=== PATIENT | female | born 1995 | race African-American/Black ===

== ENCOUNTER 2019-09-26 12:54 | Emergency (ER) | payer BC, SELFPAY ==
[2019-09-26] VITALS (10 sets, daily range): BP systolic 116–136; BP diastolic 69–85; PULSE 67–76; RESP 16; TEMP 36.2; O2SAT 100
--- NOTE | ~2019-09-26 | US_ITS ---
EXAMINATION: US OB <=14 wk fetus w TV DATE: 09/26/2019 14:31 INDICATION: Cramping and bleeding during first trimester TECHNIQUE: Real-time pelvic transabdominal and transvaginal ultrasound was performed. COMPARISON: None. FINDINGS: The uterus measures 9.0 x 5.4 x 7.5 cm. There is an intrauterine gestational sac. A yolk s ac is identified. heart motion is identified measuring 116 beats per minute (bpm) by M-mode Dop pler. The crown rump length measures 8 mm , which correlates with an estimated gestational age of 7 weeks and 2 day(s) (+/-) 4 day(s). The right ovary measures 2.9 x 2.2 x 2.5 cm. The left ovary measures 3.0 x 2.7 x 2.0 cm. There is no free fluid in the pelvis. IMPRESSION: 1. Live intrauterine with an estimated gestational age of 7 weeks and 2 day(s) (+/-) 4 day( s) and an estimated delivery date of 05/12/2020. Reviewed, dictated and finalized at location A. IMPRESSION: 1. Live intrauterine with an estimated gestational age of 7 weeks and 2 day(s) (+/-) 4 day(s) and an estimated delivery date of 05/12/2020.
[2019-09-26 13:43] LABS: Basophils Percent Auto 0.5 % (0.2-1.2); Eosinophils Absolute Auto 0.1 K/mm3 (0-0.3); Eosinophils Percent Auto 0.9 % (0-4.4); Hematocrit 38.4 % (37.0-47.0); Hemoglobin 12.7 g/dL (12.0-15.0); Immature Granulocyte Absolute 0.01 K/mm3 (0.00-0.031); Immature Granulocyte Percent A 0.2 % (0-0.5); Mean Corpuscular HGB Conc 33.1 g/dl (32-36); Mean Corpuscular Hemoglobin 28.6 pg (26-34); Mean Corpuscular Volume 86.5 fl (80-100); Monocytes Absolute Auto 0.5 K/mm3 (0.1-0.6); Monocytes Percent Auto 8.8 % (2.6-8.5); Neutrophils Absolute Auto 3.4 K/mm3 (1.3-6.7); Neutrophils Percent Auto 59.6 % (45.5-73.1); Platelet Count Result 197 k/mm3 (150-375); Red Blood Count 4.44 M/mm3 (4.2-5.4); Red Cell Distribution Width 12.1 % (11.5-14.5); White Blood Count 5.7 K/mm3 (4.5-10.0)
--- NOTE | 2019-09-26 14:14 | ED.FEMALEGU ---
HPI - Female Genitourinary General Chief complaint: Vaginal Bleeding Stated complaint: preg, vag bleed, cramping Time Seen by Provider: 09/26/19 13:25 Source: patient Mode of arrival: ambulatory Limitations: no limitations History of Present Illness HPI Narrative: This is a 24 year old that presents to the ER for vaginal bleeding since this morning. Reports she is about 6 weeks by LMP. Reports she has been having some spotting over the last couple weeks. Reports some intermittent cramping as well. Reports today she started having some worsening bleeding which prompted her to be seen. Also reports some abnormal vaginal discharge and history of BV. Denies fever, vomiting, diarrhea, or dysuria. Related Data Allergies Allergy/AdvReac Type Severity Reaction Status Date / Time No Known Allergies Allergy Verified 09/26/19 13:02 Review of Systems Review of Systems: Narrative: CONSTITUTIONAL: Denies fever GASTROINTESTINAL: Reports abdominal/pelvic pain. Denies nausea, vomiting, or diarrhea. GENITOURINARY: Denies dysuria or hematuria. All systems reviewed & are unremarkable except as noted in HPI and below PMFSH Social History Social History (Updated 09/26/19 @ 16:38 by Tawny Brown PA-C) Smoking status: Never smoker Substance use: never Gender identity (if verbalized by the patient): Female Exam Narrative: Exam Narrative: GENERAL: Well-appearing, well-nourished, and in no acute distress. HEAD: Normocephalic, atraumatic. EYES: EOMI. CHEST: Clear to auscultation. No respiratory distress. No wheezes rales or rhonchi HEART: Regular rate and rhythm. No murmur heard. Normal peripheral pulses. ABDOMEN: Soft, nontender, nondistended, normal active bowel sounds. EXTREMITIES: Normal range of motion. No edema. SKIN: Warm, dry, no rash. NEURO: No focal deficits. Alert and oriented x3. PSYCH: Normal mood and affect PELVIC: Scant amount of blood in the vaginal vault. Cervix normal appearing and closed. Moderate amount of white discharge in the vaginal vault Course Vital Signs Vital signs: Vital Signs Temperature 97.2 F L 09/26/19 12:55 Pulse Rate 76 09/26/19 12:55 Respiratory Rate 16 09/26/19 12:55 Blood Pressure 124/74 09/26/19 12:55 Pulse Oximetry 100 09/26/19 12:55 Temperature 97.2 F L 09/26/19 12:55 Pulse Rate 69 09/26/19 13:42 Respiratory Rate 16 09/26/19 12:55 Blood Pressure 136/85 09/26/19 13:42 Pulse Oximetry 100 09/26/19 15:45 MDM - Female Genitourinary MDM Narrative Medical decision making narrative: Patient presents to the emergency department for pelvic cramping and vaginal bleeding, 6 weeks by her LMP. Patient is afebrile and nontoxic-appearing. No acute abnormalities of CBC, metabolic panel, or UA. Patient's quantitative beta-hCG is 81,778. Patient is O+. Obstetric ultrasound shows a live intrauterine with an estimated gestational age of 7 weeks and 2 days. Pelvic exam shows a scant amount of blood in the vaginal vault and a closed cervix. Patient does have a moderate amount of white discharge on exam. Patient reports history of BV. Trichomonas is negative. Chlamydia and gonorrhea were sent. Patient does have an appointment to follow-up with her OB on Monday. She was instructed to follow-up as planned. She will be treated for bacterial vaginosis as this can have poor outcomes in . Patient is to follow-up with her OB, she was given warnings to return to the ER Lab Data Attestation: I reviewed the patient's lab results. Result diagrams: 09/26/19 13:30 09/26/19 13:30 Labs: Lab Results 09/26/19 09/26/19 09/26/19 Range/Units 13:30 13:30 13:30 WBC 5.7 (4.5-10.0) K/mm3 RBC 4.44 (4.2-5.4) M/mm3 Hgb 12.7 (12.0-15.0) g/dL Hct 38.4 (37.0-47.0) % MCV 86.5 (80-100) fl MCH 28.6 (26-34) pg MCHC 33.1 (32-36) g/dl RDW 12.1 (11.5-14.5) % Plt Count 197 (150-375) k/mm3 MPV 12.0 H
[2019-09-26 14:17] LABS: Appearance Urine Clear (Clear); Bacteria Urine Trace /hpf; Bilirubin Urine Negative (Negative); Blood Urine Negative (Negative); Color Urine Yellow (Yellow); Glucose Urine UA Negative (Negative); Ketones Urine Negative (Negative); Leukocyte Esterase Ur Negative LEU/UL (Negative); Mucus Urine Rare /lpf; Nitrate Urine Negative (Negative); Protein Urine Negative (Negative); RBC Urine 0-2 /hpf (0-2); Specific Grav Ur 1.019 (1.001-1.035); Squamous Epithelial Cell Urine Rare /hpf (Few); Urobilinogen Urine Negative mg/dL (<2.0); WBC Urine 0-3 /hpf
[2019-09-26 14:18] LABS: Add Urine Microscopic? YES
[2019-09-26 14:31] LABS: Alanine Aminotransferase 14 U/L (4-35); Albumin Level 4.2 g/dL (3.5-5.1); Alkaline Phosphatase 73 U/L (38-126); Aspartate Amino Transferase 23 U/L (14-36); Bilirubin,Total 0.3 mg/dL (0.2-1.3); Blood Urea Nitrogen 8 mg/dL (7-17); Calcium 9.3 mg/dL (8.4-10.2); Carbon Dioxide 25 mmol/L (22-30); Chloride 102 mmol/L (98-107); Estimated CRCL calculation 134 ml/min; Estimated Glomerular Filt Rate > 60; Glucose 83 mg/dL (65-105); Potassium 3.7 mmol/L (3.4-5.0); Sodium 135 mmol/L (137-145)
--- NOTE | 2019-09-26 15:19 | PC.NURSE ---
Pt aware of POC. Pt has no questions
== END 2019-09-26 17:26 | disposition home or self-care (01) ==
PROVIDERS: Physician Assistant; Emergency Provider Family Medicine
DX: O20.0 Threatened abortion (principal); O23.591 Infection of other part of genital tract in pregnancy, first trimester; Z3A.01 Less than 8 weeks gestation of pregnancy
CPT/HCPCS: 36415; 76801; 76817; 80053; 81001; 81025; 84702; 85025; 85461; 87070; 87491; 87591; 87808; 99284

== ENCOUNTER 2019-11-03 17:58 | Emergency (ER) | payer BC, SELFPAY ==
[2019-11-03 18:00] VITALS: BP 131/96; PULSE 90; RESP 18; TEMP 36.2; O2SAT 99
[2019-11-03 18:43] LABS: Add Urine Microscopic? YES; Appearance Urine Clear (Clear); Bilirubin Urine Negative (Negative); Blood Urine Negative (Negative); Color Urine Yellow (Yellow); Glucose Urine UA Negative (Negative); Ketones Urine Trace mg/dL (Negative); Leukocyte Esterase Ur Negative LEU/UL (Negative); Mucus Urine Moderate /lpf; Nitrate Urine Negative (Negative); Protein Urine 1+ mg/dL (Negative); RBC Urine 0-2 /hpf (0-2); Specific Grav Ur 1.028 (1.001-1.035); Squamous Epithelial Cell Urine Occasional /hpf (Few); WBC Urine 0-3 /hpf
[2019-11-03 18:48] LABS: Basophils Percent Auto 0.3 % (0.2-1.2); Eosinophils Absolute Auto 0.2 K/mm3 (0-0.3); Eosinophils Percent Auto 2.1 % (0-4.4); Hematocrit 34.4 % (37.0-47.0); Hemoglobin 11.8 g/dL (12.0-15.0); Immature Granulocyte Absolute 0.02 K/mm3 (0.00-0.031); Immature Granulocyte Percent A 0.3 % (0-0.5); Mean Corpuscular HGB Conc 34.3 g/dl (32-36); Mean Corpuscular Hemoglobin 29.3 pg (26-34); Mean Corpuscular Volume 85.4 fl (80-100); Mean Platelet Volume 11.5 fl (7.4-10.4); Monocytes Absolute Auto 0.6 K/mm3 (0.1-0.6); Monocytes Percent Auto 8.4 % (2.6-8.5); Neutrophils Absolute Auto 4.4 K/mm3 (1.3-6.7); Neutrophils Percent Auto 61.9 % (45.5-73.1); Platelet Count Result 187 k/mm3 (150-375); Red Blood Count 4.03 M/mm3 (4.2-5.4); Red Cell Distribution Width 12.6 % (11.5-14.5)
[2019-11-03 19:29] VITALS: BP 123/69; PULSE 75; RESP 15; O2SAT 99
--- NOTE | 2019-11-03 19:31 | PC.NURSE ---
Assumed care of pt at this time. report from NARGIS Silver
--- NOTE | 2019-11-03 19:38 | ED.ABDPAIN ---
HPI - Abdominal Pain General Chief Complaint: Abdominal Pain <JARETH Bledsoe Last Filed: 11/03/19 21:57> Stated Complaint: abd cramping/ 12 weeks preg <JARETH Bledsoe Last Filed: 11/03/19 21:57> Time Seen by Provider: 11/03/19 18:59 <JARETH Bledsoe Last Filed: 11/03/19 21:57> Source: patient <JARETH Bledsoe Last Filed: 11/03/19 21:57> Mode of arrival: ambulatory <JARETH Bledsoe Last Filed: 11/03/19 21:57> Limitations: no limitations <JARETH Bledsoe Last Filed: 11/03/19 21:57> History of Present Illness HPI narrative: This is a 24 year old that presents to the ER for pelvic cramping since last night. Reports she is 12 weeks . She has not taken any medicine for pain. Does report history of chronic pelvic pain for which she has seen multiple OB/GYNs. Her OB for this is Dr. Walton. Denies fever, vaginal bleeding, nausea, vomiting, dysuria, or hematuria. <JARETH Bledsoe Last Filed: 11/03/19 21:57> Related Data Home Medications: Home Medications Medication Instructions Recorded Confirmed [id number] fum-folic [id number] pkg PO DAILY 11/03/19 [Daily ] <JARETH Bledsoe Last Filed: 11/03/19 21:57> Allergies/Adverse Reactions: Allergies Allergy/AdvReac Type Severity Reaction Status Date / Time No Known Allergies Allergy Verified 11/03/19 18:02 <JARETH Bledsoe Last Filed: 11/03/19 21:57> Review of Systems Review of Systems: Narrative: CONSTITUTIONAL: Denies fever GASTROINTESTINAL: Reports abdominal pain. Denies nausea, vomiting, or diarrhea. GENITOURINARY: Denies dysuria or hematuria. <JARETH Bledsoe Last Filed: 11/03/19 21:57> All systems reviewed & are unremarkable except as noted in HPI and below <Tawny Brown PA-C - Last Filed: 11/03/19 21:57> [facility] Social History Social History: Social History (Updated 09/26/19 @ 16:38 by Tawny Brown PA-C) Smoking status: Never smoker Substance use: never Gender identity (if verbalized by the patient): Female <Tawny Brown PA-C - Last Filed: 11/03/19 21:57> Exam Narrative: Exam Narrative: GENERAL: Well-appearing, well-nourished, and in no acute distress. HEAD: Normocephalic, atraumatic. EYES: EOMI. CHEST: Clear to auscultation. No respiratory distress. No wheezes rales or rhonchi HEART: Regular rate and rhythm. No murmur heard. Normal peripheral pulses. ABDOMEN: Soft, nontender, nondistended, normal active bowel sounds. EXTREMITIES: Normal range of motion. No edema. SKIN: Warm, dry, no rash. NEURO: No focal deficits. Alert and oriented x3. PSYCH: Normal mood and affect PELVIC: Normal external genitalia. Normal appearing cervix, no blood in the vaginal vault <Tawny Brown PA-C - Last Filed: 11/03/19 21:57> Course Consultations Consultation #1: Spoke with Dr. Walton about patient and work-up will follow-up in clinic. <Tawyn Brown PA-C - Last Filed: 11/03/19 21:57> Date: 11/03/19 <Tawny Brown PA-C - Last Filed: 11/03/19 21:57> Time: 21:53 <Tawny Brown PA-C - Last Filed: 11/03/19 21:57> Vital Signs Vital signs: Vital Signs Temperature 36.2 C L 11/03/19 18:00 Pulse Rate 90 11/03/19 18:00 Respiratory Rate 18 11/03/19 18:00 Blood Pressure 131/96 H 11/03/19 18:00 Pulse Oximetry 99 11/03/19 18:00 Temperature 36.2 C L 11/03/19 18:00 Pulse Rate 77 11/03/19 21:50 Respiratory Rate 15 11/03/19 21:50 Blood Pressure 122/80 11/03/19 21:50 Pulse Oximetry 97 11/03/19 21:50 <Tawny Brown PA-C - Last Filed: 11/03/19 21:57> Vital Signs Temperature 36.2 C L 11/03/19 18:00 Pulse Rate 90 11/03/19 18:00 Respiratory Rate 18 11/03/19 18:00 Blood Pressure 131/96 H 11/03/19 18:00 Pulse Oximetry 99 11/03/19 18:00 Temperature 36.2 C L 11/03/19 18:00 Pulse Rate 77
[2019-11-03 19:42] LABS: Alanine Aminotransferase 17 U/L (4-35); Albumin Level 3.7 g/dL (3.5-5.1); Alkaline Phosphatase 61 U/L (38-126); Aspartate Amino Transferase 21 U/L (14-36); Bilirubin,Total 0.1 mg/dL (0.2-1.3); Blood Urea Nitrogen 8 mg/dL (7-17); Calcium 9.1 mg/dL (8.4-10.2); Carbon Dioxide 21 mmol/L (22-30); Chloride 106 mmol/L (98-107); Estimated CRCL calculation 161 ml/min; Estimated Glomerular Filt Rate > 60; Glucose 104 mg/dL (65-105); Lipase 37 U/L (23-300); Potassium 3.4 mmol/L (3.4-5.0); Sodium 134 mmol/L (137-145)
[2019-11-03 21:50] VITALS: BP 122/80; PULSE 77; RESP 15; O2SAT 97
== END 2019-11-03 21:50 | disposition home or self-care (01) ==
PROVIDERS: Physician Assistant; Emergency Provider Emergency Medicine; PCP Obstetrics & Gynecology
DX: O26.891 Other specified pregnancy related conditions, first trimester (principal); R10.2 Pelvic and perineal pain; Z3A.12 12 weeks gestation of pregnancy
CPT/HCPCS: 36415; 80053; 81001; 83690; 84702; 85025; 96374; 99284; J0131

== ENCOUNTER 2020-02-11 16:39 | Observation (INO) | payer BC, SELFPAY ==
[2020-02-11 16:32] VITALS: BP 130/81; PULSE 72; RESP 16; TEMP 36.3; O2SAT 100
[2020-02-11 16:45] VITALS: BMI 34.2
[2020-02-11 17:01] VITALS: BP 125/81; PULSE 78
[2020-02-11 17:16] VITALS: BP 124/72; PULSE 74
[2020-02-11 17:30] VITALS: TEMP 37
[2020-02-11 17:31] VITALS: BP 121/81; PULSE 84
--- NOTE | 2020-02-24 07:13 | PM.OBTRLD ---
OB - Triage/Final Diagnosis Visit Information Reason for evaluation: threatened labor
== END 2020-02-11 17:58 | disposition home or self-care (01) ==
PROVIDERS: Admitting Provider Obstetrics & Gynecology; Visit Provider Obstetrics & Gynecology
DX: O47.9 False labor, unspecified (principal); Z3A.00 Weeks of gestation of pregnancy not specified
CPT/HCPCS: G0378; G0379